=== PATIENT | male | born 1985 | race Caucasian/White ===

== ENCOUNTER 2017-12-11 12:23 | Emergency (ER) | payer SELFPAY ==
[2017-12-11 12:29] VITALS: BP 140/95
--- NOTE | 2017-12-11 12:31 | EDM.PDOC ---
ED HPI GENERAL MEDICAL PROBLEM - General Chief Complaint: Back Pain or Injury Stated Complaint: back pain Time Seen by Provider: 12/11/17 12:25 Source of Information: Reports: Patient, Provider History Limitations: Reports: No Limitations - History of Present Illness INITIAL COMMENTS - FREE TEXT/NARRATIVE: Patient is a 32-year-old who was seen in the emergency room chief complaint of lower back pain he has an old MRI which shows that there is some disc jens loss but there is no loss of signal at this time he complains of about 8 out of 10 pain states that he sees Dr. wilder Clemente at [facility] patient needs to quit smoking but still smoking prior to surgery patient apparently about 2 years ago had an accident where he fell off the roof went to physical therapy pain improve before the last year he has had constant pain with no improvement he has been on multiple medications including narcotics for pain with no real improvement patient states that he has violated his pain contract in the past and was fired from the clinic [facility]. Patient appeared to have significant pain laying on his back he did have a positive straight leg at 30 on the right and 45 on the left he has hyperactive reflexes deep tendon reflex patella Onset: Gradual, Other (Patient has had multiple epidurals 3 also has had facet injections according to patient) Duration: Week(s):, Recurring Location: Reports: Back Quality: Reports: Burning (In buttocks area), Sharp, Stabbing Severity: Severe Improves with: Reports: None Worsens with: Reports: Movement Context: Reports: Trauma (Fell off a roof) Associated Symptoms: Reports: Weakness - Related Data Allergies Allergy/AdvReac Type Severity Reaction Status Date / Time tramadol Allergy Rash Verified 07/02/17 19:11 Home Meds: Home Meds Ibuprofen 600 mg PO Q6HR PRN 05/28/17 [History] Acetaminophen/oxyCODONE [Percocet 325-5 MG] 1 tab PO Q6H PRN 07/02/17 [History] Non-Formulary Medication [NF Drug] 1 applic TOP DAILY 07/02/17 [History] Gabapentin [Neurontin] 800 mg PO TID 12/11/17 [History] Past Medical History Musculoskeletal History: Reports: Other (See Below) Other Musculoskeletal History: left pinkie finger injury with fracture Social & Family History - Tobacco Use Smoking Status *Q: Current Every Day Smoker Years of Tobacco use: 15 Packs/Tins Daily: 1 Used Tobacco, but Quit: No Second Hand Smoke Exposure: No - Caffeine Use Caffeine Use: Reports: Coffee, Energy Drinks, Soda - Recreational Drug Use Recreational Drug Use: No ED ROS GENERAL - Review of Systems Review Of Systems: See Below Constitutional: Reports: Weakness HEENT: Reports: No Symptoms Respiratory: Reports: No Symptoms Cardiovascular: Reports: No Symptoms Endocrine: Reports: No Symptoms GI/Abdominal: Reports: No Symptoms : Reports: No Symptoms Musculoskeletal: Reports: Back Pain, Leg Pain, Muscle Stiffness Skin: Reports: No Symptoms Neurological: Reports: No Symptoms Psychiatric: Reports: No Symptoms Hematologic/Lymphatic: Reports: No Symptoms Immunologic: Reports: No Symptoms Free Text/Narrative/Comment: Patient has a positive straight leg on the right at 30 and positive on the left at 45 has difficulty getting up from bed and exam. ED EXAM, GENERAL - Physical Exam Exam: See Below Exam Limited By: No Limitations General Appearance: Alert, WD/WN, No Apparent Distress Ears: Normal External Exam, Normal Canal, Hearing Grossly Normal, Normal TMs Ear Exam: Bilateral Ear: Auricle Normal, Canal Normal, TM normal Nose: Normal Inspection, Normal Mucosa, No Blood Throat/Mouth: Normal Inspection, Normal Lips, Normal Teeth, Normal Gums, Normal Oropharynx, Normal Voice, No Airway Compromise Head: Atraumatic, Normocephalic Neck: Normal Inspection, Supple, Non-Tender, Full Range of Motion Respiratory/Chest: No Respiratory Distress, Lungs Clear, Normal Breath Sounds, No Accessory Muscle Use, Chest Non-Tender Cardiovascular: Normal Peripheral Pulses, Regular Rate, Rhythm, No Edema, No Gallop, No JVD, No Murmur, No Rub GI/Abdominal: Normal Bowel Sounds, Soft, Non-Tender, No Organomegaly, No Distention, No Abnormal Bruit, No Mass (Male) Exam: Deferred Rectal (Males) Exam: Deferred Back Exam: Decreased Range of Motion, Muscle Spasm Extremities: Leg Pain Neurological: Alert, Oriented, CN II-XII Intact, Normal Cognition, Other (Deep tendon reflex patellar were hyper active) Psychiatric: Normal Affect, Normal Mood Skin Exam: Warm, Dry, Intact, Normal Color, No Rash Departure - Departure Time of Disposition: 12:45 Disposition: Home, Self-Care 01 Condition: Fair Clinical Impression: Chronic radicular pain of lower back - Discharge Information Instructions: Chronic Back Pain Forms: ED Department Discharge, Refusal of Exam and Treatment Care Plan Goals: Patient was instructed to continue seeing Dr. Low the neurosurgeon continue taking his medication as prescribed by Dr. Kam and follow-up with his primary provider who has been his pain management physician. At this time we will give him Toradol 60 IM, Valium 10 IM he will not able to drive home if we do given Valium patient states his has been a come and pick him up
[2017-12-11] MEDS: Ketorolac 60 MG/2 ML SDV IM ONE (12:56)
== END 2017-12-11 13:12 | disposition home or self-care (01) ==
LOC: LL.ED 12:23
DX: M54.16 Radiculopathy, lumbar region (principal); G89.29 Other chronic pain; F17.210 Nicotine dependence, cigarettes, uncomplicated; Z88.5 Allergy status to narcotic agent; Z79.899 Other long term (current) drug therapy
CPT/HCPCS: 96372; 99283; J1885; J3360